=== PATIENT | male | born 1945 | race Caucasian/White ===

== ENCOUNTER → 2018-02-14 | Outpatient (CLI) | payer MEDICARE | END | disposition home or self-care (01) | LOC: NM 07:26 | PROVIDERS: ATTEND Internal Medicine Gastroenterology | DX: K81.9 Cholecystitis, unspecified (principal) | CPT/HCPCS: 78227; A9537 ==

== ENCOUNTER 2019-02-20 10:49 | Inpatient (IN) | payer MEDICARE ==
[~2019-02-20] VITALS: Ht 193 cm; Wt 107.0 kg
[~2019-02-20 10:49] MED LIST: APIX2.5T PO; CARV12.545 PO; FLUT9.9S; FURO40TA5 PO; OMEP20TA2 PO; SACU1TAB PO
[2019-02-20 12:00] VITALS: BP 93/61
[2019-02-20 12:15] VITALS: BP 82/59
[2019-02-20] MEDS ORDERED: TORS20TA4 PO (14:32)
[2019-02-20] MEDS ORDERED: MAGN400T26 MT (15:01)
[2019-02-20] MEDS ORDERED: CHOL200010 PO (15:02)
[2019-02-20 16:00] VITALS: BP 89/64
[2019-02-20] MEDS: FUROSEMIDE 40MG/4ML VIAL IVP SCH (16:27)
[2019-02-20 17:21] LABS: BASOPHILS % 1.8 % (0.0-2.0); EOSINOPHILS % 2.3 % (0.0-5.0); HEMATOCRIT. 39.1 % (42.0-52.0); HEMOGLOBIN. 13.5 g/dL (14.0-18.0); LYMPHOCYTES % 21.9 % (20.0-50.0); MEAN CORPUSCULAR HEMOGLOBIN 32.2 pg (28.0-32.0); MEAN CORPUSCULAR VOLUME 93.5 fL (80.0-94.0); MEAN PLATELET VOLUME 9.3 fl (7.4-10.4); MONOCYTES % 14.4 % (2.0-8.0); NEUTROPHILS % 59.6 % (40.0-76.0); PLATELET 100 x1000/uL (130-400); RED BLOOD CELL COUNT 4.19 mill/uL (4.7-6.1); RED CELL DISTRIBUTION WIDTH 15.9 % (11.6-14.6)
[2019-02-20 17:28] LABS: CHLORIDE 103 mEq/L (98-107)
[2019-02-20 20:00] VITALS: BP 87/60
[2019-02-20] MEDS: CARVEDILOL 3.125 MG TABLET PO SCH (20:23)
[2019-02-21] VITALS: BP 92/54
[2019-02-21 04:00] VITALS: BP 91/54
[2019-02-21] MEDS ORDERED: METO5TAB69 PO (05:13)
[2019-02-21] MEDS ORDERED: DEXL60CA3 PO (05:13)
[2019-02-21] MEDS ORDERED: POTA20TA12 PO (05:13)
[2019-02-21] MEDS ORDERED: FURO40TA5 PO (05:13)
[2019-02-21] MEDS ORDERED: RIVA10TA PO (05:13)
[2019-02-21] MEDS ORDERED: ASPI-1160 PO (05:13)
[2019-02-21] MEDS: FUROSEMIDE 40MG/4ML VIAL IVP SCH ×2 (06:47→16:31)
[2019-02-21 07:35] LABS: CLARITY URINE CLEAR (CLEAR); COLOR URINE YELLOW (YELLOW); KETONES URINE NEGATIVE (NEGATIVE); LEUKOCYTE ESTERASE URINE NEGATIVE (NEGATIVE); NITRITE URINE NEGATIVE (NEGATIVE); OCCULT BLOOD URINE NEGATIVE (NEGATIVE); PROTEIN URINE NEGATIVE (NEGATIVE); SPECIFIC GRAVITY URINE 1.011 (1.005-1.030); UROBILINOGEN URINE 0.2 E.U./dL (0.2-1.0)
[2019-02-21 07:35] LABS: BASOPHILS % 1.6 % (0.0-2.0); EOSINOPHILS % 2.6 % (0.0-5.0); HEMATOCRIT. 37.8 % (42.0-52.0); HEMOGLOBIN. 12.9 g/dL (14.0-18.0); MEAN CORPUSCULAR HEMOGLOBIN 31.9 pg (28.0-32.0); MEAN CORPUSCULAR VOLUME 93.2 fL (80.0-94.0); MEAN PLATELET VOLUME 9.6 fl (7.4-10.4); NEUTROPHILS % 58.8 % (40.0-76.0); PLATELET 98 x1000/uL (130-400); RED BLOOD CELL COUNT 4.05 mill/uL (4.7-6.1); RED CELL DISTRIBUTION WIDTH 15.5 % (11.6-14.6)
[2019-02-21 07:44] LABS: CHLORIDE 102 mEq/L (98-107)
[2019-02-21 08:00] VITALS: BP 105/77
[2019-02-21] MEDS ORDERED: METOLAZONE 2.5MG TABLET PO NR (08:15)
[2019-02-21] MEDS: OMEPRAZOLE 20MG CAPSULE EXTENDED RELEASE PO SCH (08:58)
[2019-02-21] MEDS: APIXABAN 2.5 MG TABLET PO SCH ×2 (08:59→16:31)
[2019-02-21] MEDS ORDERED: MEDICATION NOT ON FORMULARY EA (Cholecalciferol (Vitamin D3) (Vitamin D3) 2,000 UNIT) PO SCH (09:00)
[2019-02-21] MEDS: MAGNESIUM OXIDE 400MG TABLET PO SCH ×2 (09:00→16:32)
[2019-02-21] MEDS ORDERED: MEDICATION NOT ON FORMULARY EA (Omeprazole 20 MG) PO SCH (09:00)
[2019-02-21] MEDS: CARVEDILOL 3.125 MG TABLET PO SCH ×2 (09:00→21:28)
[2019-02-21] MEDS ORDERED: [UNRECOGNIZED DRUG - REMARK] NS SCH (09:00)
[2019-02-21] MEDS: CHOLECALCIFEROL (D3) 1000 UNIT TABLET PO SCH (09:09)
[2019-02-21] MEDS: FLUTICASONE PROPIONATE 50MCG/SPRAY BOTTLE BOTHNSTRLS SCH (09:10)
[2019-02-21 12:00] VITALS: BP 92/58
[2019-02-21 16:00] VITALS: BP 101/67
[2019-02-21 20:00] VITALS: BP 85/59
[2019-02-21] MEDS: GUAIFENESIN-DM 200MG-20MG/10ML UDC PO PRN (21:27)
[2019-02-21] MEDS: ZOLPIDEM TARTRATE 5MG TABLET PO PRN (21:28)
[2019-02-22] VITALS: BP 78/51
[2019-02-22 04:00] VITALS: BP 93/65
[2019-02-22] MEDS: OMEPRAZOLE 20MG CAPSULE EXTENDED RELEASE PO SCH (06:17)
[2019-02-22] MEDS: FUROSEMIDE 40MG/4ML VIAL IVP SCH ×2 (06:17→16:33)
[2019-02-22 06:47] LABS: BASOPHILS % 1.8 % (0.0-2.0); EOSINOPHILS % 2.2 % (0.0-5.0); HEMATOCRIT. 39.4 % (42.0-52.0); HEMOGLOBIN. 13.6 g/dL (14.0-18.0); LYMPHOCYTES % 22.9 % (20.0-50.0); MEAN CORPUSCULAR HEMOGLOBIN 32.1 pg (28.0-32.0); MEAN CORPUSCULAR VOLUME 93.3 fL (80.0-94.0); MEAN PLATELET VOLUME 9.6 fl (7.4-10.4); MONOCYTES % 13.9 % (2.0-8.0); NEUTROPHILS % 59.2 % (40.0-76.0); PLATELET 106 x1000/uL (130-400); RED BLOOD CELL COUNT 4.22 mill/uL (4.7-6.1); RED CELL DISTRIBUTION WIDTH 15.7 % (11.6-14.6)
[2019-02-22 07:58] VITALS: BP_SYST 101; BP_SYST 95; BP_DIAS 56; BP_DIAS 69
[2019-02-22] MEDS: MAGNESIUM OXIDE 400MG TABLET PO SCH ×2 (09:00→16:32)
[2019-02-22] MEDS: CHOLECALCIFEROL (D3) 1000 UNIT TABLET PO SCH (09:18)
[2019-02-22] MEDS: APIXABAN 2.5 MG TABLET PO SCH ×2 (09:18→16:33)
[2019-02-22] MEDS: CARVEDILOL 3.125 MG TABLET PO SCH ×2 (09:18→21:17)
[2019-02-22] MEDS: FLUTICASONE PROPIONATE 50MCG/SPRAY BOTTLE BOTHNSTRLS SCH (09:18)
[2019-02-22 11:33] VITALS: BP 78/57
[2019-02-22] MEDS: GUAIFENESIN-DM 200MG-20MG/10ML UDC PO PRN (13:07)
[2019-02-22 15:28] VITALS: BP 83/57
[2019-02-22 20:00] VITALS: BP 87/51
[2019-02-22] MEDS: ZOLPIDEM TARTRATE 5MG TABLET PO PRN (23:18)
[2019-02-23 04:00] VITALS: BP 100/60
[2019-02-23] MEDS: GUAIFENESIN-DM 200MG-20MG/10ML UDC PO PRN ×3 (05:43→23:19)
[2019-02-23] MEDS: OMEPRAZOLE 20MG CAPSULE EXTENDED RELEASE PO SCH (06:21)
[2019-02-23] MEDS: FUROSEMIDE 40MG/4ML VIAL IVP SCH ×2 (06:21→18:37)
[2019-02-23 08:00] VITALS: BP 83/60
[2019-02-23] MEDS: CHOLECALCIFEROL (D3) 1000 UNIT TABLET PO SCH (08:42)
[2019-02-23] MEDS: APIXABAN 2.5 MG TABLET PO SCH ×2 (08:42→18:37)
[2019-02-23] MEDS: MAGNESIUM OXIDE 400MG TABLET PO SCH ×2 (08:42→18:37)
[2019-02-23] MEDS: FLUTICASONE PROPIONATE 50MCG/SPRAY BOTTLE BOTHNSTRLS SCH (08:43)
[2019-02-23] MEDS: CARVEDILOL 3.125 MG TABLET PO SCH ×2 (08:45→21:00)
[2019-02-23 08:57] LABS: EOSINOPHILS % 2.3 % (0.0-5.0); HEMATOCRIT. 38.4 % (42.0-52.0); HEMOGLOBIN. 13.2 g/dL (14.0-18.0); MEAN CORPUSCULAR HEMOGLOBIN 31.7 pg (28.0-32.0); MEAN CORPUSCULAR VOLUME 92.5 fL (80.0-94.0); MEAN PLATELET VOLUME 9.9 fl (7.4-10.4); MONOCYTES % 11.8 % (2.0-8.0); NEUTROPHILS % 59.9 % (40.0-76.0); PLATELET 100 x1000/uL (130-400); RED BLOOD CELL COUNT 4.15 mill/uL (4.7-6.1); RED CELL DISTRIBUTION WIDTH 15.7 % (11.6-14.6)
[2019-02-23 11:56] VITALS: BP 79/51
[2019-02-23 15:38] VITALS: BP 74/50
[2019-02-23] MEDS: ZOLPIDEM TARTRATE 5MG TABLET PO PRN (23:17)
[2019-02-24] VITALS: BP 83/59
[2019-02-24 04:00] VITALS: BP 81/53
[2019-02-24 06:32] LABS: BASOPHILS % 2.5 % (0.0-2.0); EOSINOPHILS % 2.5 % (0.0-5.0); HEMATOCRIT. 36.6 % (42.0-52.0); HEMOGLOBIN. 12.5 g/dL (14.0-18.0); LYMPHOCYTES % 25.5 % (20.0-50.0); MEAN CORPUSCULAR HEMOGLOBIN 31.5 pg (28.0-32.0); MEAN CORPUSCULAR VOLUME 92.5 fL (80.0-94.0); MEAN PLATELET VOLUME 9.5 fl (7.4-10.4); MONOCYTES % 14.2 % (2.0-8.0); NEUTROPHILS % 55.3 % (40.0-76.0); PLATELET 89 x1000/uL (130-400); RED BLOOD CELL COUNT 3.96 mill/uL (4.7-6.1); RED CELL DISTRIBUTION WIDTH 15.4 % (11.6-14.6)
[2019-02-24] MEDS: FUROSEMIDE 40MG/4ML VIAL IVP SCH (06:41)
[2019-02-24 08:26] VITALS: BP 86/56
[2019-02-24] MEDS: MAGNESIUM OXIDE 400MG TABLET PO SCH (08:35)
[2019-02-24] MEDS: CHOLECALCIFEROL (D3) 1000 UNIT TABLET PO SCH (08:35)
[2019-02-24] MEDS: CARVEDILOL 3.125 MG TABLET PO SCH (08:35)
[2019-02-24] MEDS: APIXABAN 2.5 MG TABLET PO SCH (08:35)
[2019-02-24] MEDS: FLUTICASONE PROPIONATE 50MCG/SPRAY BOTTLE BOTHNSTRLS SCH (08:36)
[2019-02-24] MEDS ORDERED: FAMOTIDINE 20MG TABLET PO SCH (09:00)
[2019-02-24 12:00] VITALS: BP 85/55
[2019-02-24 12:20] VITALS: BP 87/55
[2019-02-24 13:12] VITALS: BP 87/55
== END 2019-02-24 14:15 | disposition home or self-care (01) | DRG 291 ==
LOC: 6WST 10:49 → 7WST 02-23 17:41
PROVIDERS: ADMIT Family Medicine Adult Medicine; ATTEND Family Medicine Adult Medicine
DX: I13.0 Hypertensive heart and chronic kidney disease with heart failure and stage 1 through stage 4 chronic kidney disease, or unspecified chronic kidney disease (principal); I50.23 Acute on chronic systolic (congestive) heart failure; E87.70 Fluid overload, unspecified; I48.0 Paroxysmal atrial fibrillation; I25.5 Ischemic cardiomyopathy; N18.9 Chronic kidney disease, unspecified; I44.7 Left bundle-branch block, unspecified; I95.89 Other hypotension; Z95.810 Presence of automatic (implantable) cardiac defibrillator; E83.42 Hypomagnesemia; I25.10 Atherosclerotic heart disease of native coronary artery without angina pectoris; Z79.01 Long term (current) use of anticoagulants; Z79.899 Other long term (current) drug therapy; Z88.8 Allergy status to other drugs, medicaments and biological substances; Z88.1 Allergy status to other antibiotic agents; Z91.018 Allergy to other foods
CPT/HCPCS: 36415; 71045; 71046; 80048; 83735; 83880; 84484; 93005; 93306; 93970; J1940